=== PATIENT | male | born 1985 | race Caucasian/White ===

== ENCOUNTER 2023-03-25 13:55 | Emergency (ER) | payer SELFPAY ==
[~2023-03-25] VITALS: Ht 177.8 cm; Wt 100.0 kg
[2023-03-25 14:20] VITALS: TEMP 97.7
[2023-03-25] MEDS ORDERED: ondansetron/PF 4mg/2ml inj IV ONE (15:10)
[2023-03-25] MEDS ORDERED: morphine 4 MG/ML inj SYRINge IV ONE (15:10)
--- NOTE | 2023-03-25 15:39 | NUR ---
PT TAKEN TO CT.
[2023-03-25] MEDS ORDERED: iohexol 350MG/ML 100ml bottle IV ONE (16:00)
[2023-03-25] MEDS ORDERED: iohexol 350 MG/ML 50ML vial IV ONE (16:00)
[2023-03-25 16:45] LABS: BASOPHILS % (AUTO) 0.2 % (0-1); EOSINOPHILS # (AUTO) 0.1 X10'3 (0-0.9); EOSINOPHILS % (AUTO) 0.6 % (0-6); HEMATOCRIT 45.5 % (42.0-52.0); HEMOGLOBIN 15.5 g/dl (14.0-17.9); LYMPHOCYTES # (AUTO) 1.3 X10'3 (1.1-4.8); MEAN CORPUSCULAR HEMOGLOBIN 31.9 PG (27.0-31.0); MEAN CORPUSCULAR VOLUME 93.7 FL (78-98); MEAN PLATELET VOLUME 8.2 FL (7.4-10.4); MONOCYTES # (AUTO) 1.5 X10'3 (0-0.9); MONOCYTES % (AUTO) 7.8 % (2-12); NEUTROPHILS # (AUTO) 15.9 X10'3 (1.8-7.7); NEUTROPHILS % (AUTO) 84.4 % (42-75); PLATELET COUNT 249 X10'3 (140-440); RED BLOOD COUNT 4.86 X10'6 (4.70-6.10); RED CELL DISTRIBUTION WIDTH 13.5 % (11.5-14.5); WHITE BLOOD COUNT 18.9 X10'3 (4.5-11.0)
[2023-03-25 17:00] LABS: ALANINE AMINOTRANSFERASE 67 U/L (12-78); ALBUMIN 4.1 G/DL (3.4-5.0); ALBUMIN/GLOBULIN RATIO 1.3 (1.1-1.5); ALKALINE PHOSPHATASE 55 IU/L (46-116); ANION GAP 11 (8-16); ASPARTATE AMINO TRANSFERASE 68 U/L (10-37); BILIRUBIN,TOTAL 0.5 MG/DL (0.1-1.0); BLOOD UREA NITROGEN 18 MG/DL (7-18); BUN/CREATININE RATIO 15.7 (10.0-20.0); CALCIUM 9.3 MG/DL (8.5-10.1); CHLORIDE 103 MMOL/L (99-107); CREATININE 1.15 MG/DL (0.60-1.10); GLUCOSE 106 MG/DL (70-104); POTASSIUM 3.5 MMOL/L (3.5-5.1); SODIUM 138 MMOL/L (135-145); TOTAL CARBON DIOXIDE 23.6 MMOL/L (24-32); TOTAL PROTEIN 7.3 G/DL (6.4-8.2); eCRCL 89 ML/MIN; eGFR 71 ML/MIN
--- NOTE | 2023-03-25 17:42 | NUR ---
PT NOT TAKEN TO CT EARLIER D/T WAITING FOR LAB EGRF. RN NOTIFIED CT LAB IS RESULTED AND THEY WILL COME GET PT AT THIS TIME.
[2023-03-25 18:45] VITALS: BP 122/74; PULSE 86; RESP 16; O2SAT 98
[2023-03-25] MEDS ORDERED: OXYC-145 PO (19:07)
== END 2023-03-25 19:22 | disposition home or self-care (01) ==
LOC: ER 13:56
DX: S40.022A Contusion of left upper arm, initial encounter (principal); S20.312A Abrasion of left front wall of thorax, initial encounter; W18.39XA Other fall on same level, initial encounter; Y93.89 Activity, other specified; Y92.89 Other specified places as the place of occurrence of the external cause; Y99.8 Other external cause status
CPT/HCPCS: 36415; 71045; 71260; 73030; 73060; 73206; 74177; 80053; 85025; 96374; 96375; 99285; J2270; J2405; J3490; Q9967